=== PATIENT | male | born 1970 | race Caucasian/White ===

== ENCOUNTER 2021-12-30 07:12 | Day surgery (SDC) | payer OTHER ==
[2021-12-30] MEDS ORDERED: FISH OIL 1,4001 EACH PO (07:32)
[2021-12-30] MEDS ORDERED: MEGA MULTI FOR1 EAC1 PO (07:32)
[2021-12-30] MEDS ORDERED: BLACK ELDERBER1 EACH PO (07:32)
--- NOTE | 2021-12-30 11:04 | NUR ---
12/30/21 110[address] [place] [address] PT ARRVIED TO PACU ON 2L VIA NC, PT WAKES EASILY AND TALKING TO RN. VSS. PT DENIES PAIN AND NAUSEA, PT REORIENTED TO PACU. PT ENCOURAGED TO PASS GAS.
--- NOTE | 2021-12-30 16:40 | OR ---
[facility] [address], [place] [address] Signed DATE OF OPERATION: 12/30/2021 SURGEON: Madeleine Casas MD PREOPERATIVE DIAGNOSIS: Screening. POSTOPERATIVE DIAGNOSES: 1. 4 mm polyp proximal transverse colon. 2. 3 mm polyp at 7 cm. 3. Minimal internal hemorrhoid columns. PROCEDURE: Colonoscopy with hot biopsy. INDICATIONS: Gautam is a 51-year-old gentleman, asked to see me for his initial screening colonoscopy. He has no lower GI complaints. There is no family history of colon cancer or polyps. He was hoping to come last year, but the COVID pandemic was in full swing. In the office, I gave him a pamphlet on colonoscopy. He understands the nature of the test. There is risk including, but not limited to gas bloating, crampy abdominal pain, bleeding, perforation requiring surgery, and missed diagnosis. We also discussed the need for IV conscious sedation. He had expressed understanding and wished to proceed. PROCEDURE NOTE: Gautam was taken into our endoscopy suite and placed in the left lateral decubitus position. He was given a total of 10 mg of Versed and 250 mcg of fentanyl. Even then he metabolized the medication very quickly and he woke up multiple times moaning throughout the procedure. He was able to talk to us and look at the screen. Fortunately he is easy to scope and his prep was quite good. Nevertheless, in the future, he really needs monitored anesthesia care with propofol. A digital rectal exam had been performed and this was unremarkable. He had good sphincter tone. The adult colonoscope was introduced and advanced all around into the cecum under direct visualization of the camera. We could easily see the appendiceal orifice and ileocecal valve. The scope was then slowly withdrawn. We took pictures throughout for photodocumentation. He had two tiny polyps removed with a hot biopsy forceps. There was no diverticulosis. Upon retroflexion of the scope, he does have minimal internal hemorrhoid columns. After this, the gas was suctioned out and colonoscope removed. Overall, Gautam tolerated the procedure well as described above. Electronically Signed By: MADELEINE CASAS MD 12/30/21 1640 PATIENT NAME: GAUTAM KAUR OPERATIVE REPORT DATE OF : 70 REPORT #: [id number] PHYSICIAN: MADELEINE CASAS MD PCP: ZORA FUNES PA-C REPORT IS CONFIDENTIAL AND NOT TO BE RELEASED WITHOUT AUTHORIZATION [address] [address] Signed RECOMMENDATIONS: I will see Gautam back in my office in 7 to 14 days to review his results. He should consider monitored anesthesia care with propofol in the future. Madeleine Casas MD ALB/MODL /[id number] cc: Zora Casas MD Copies: MADELEINE CASAS MD ~ Electronically Signed By: MADELEINE CASAS MD 12/30/21 1640 PATIENT NAME: GAUTAM KAUR OPERATIVE REPORT DATE OF : 70 REPORT #: [id number] PHYSICIAN: MADELEINE CASAS MD PCP: ZORA FUNES PA-C REPORT IS CONFIDENTIAL AND NOT TO BE RELEASED WITHOUT AUTHORIZATION
--- NOTE | 2021-12-31 13:42 | PATH ---
[facility] [address], [place] [address] Signed SPECIMEN(S): A PROXIMAL TRANSVERSE COLON POLYP SPECIMEN(S): B COLON POLYP AT 7 CM SPECIMEN SOURCE: A. PROXIMAL TRANSVERSE COLON POLYP B. COLON POLYP AT 7 CM CLINICAL HISTORY: Screening. Post op: Colorectal polyps, internal hemorrhoids. Colonoscopy. FINAL PATHOLOGIC DIAGNOSIS: A. Colon, proximal transverse, polyp, polypectomy: - Tubular adenoma. - Negative for high-grade dysplasia or malignancy. B. Colon, polyp at 7 cm, polypectomy: - Hyperplastic polyp. - Negative for dysplasia or malignancy. NAL:cml:C2NR MICROSCOPIC EXAMINATION: Histologic sections of all submitted blocks are examined by light microscopy. These findings, together with the gross examination, support the pathologic diagnosis. GROSS DESCRIPTION: Two specimens are received in two containers, labeled "IK." A. The specimen, labeled "IK, proximal transverse colon polyp," is received in formalin and consists of one ledezma soft tissue fragment that measures 0.2 cm in greatest dimension. The specimen is entirely submitted in cassette (A1). B. The specimen, labeled "IK, colon polyp at 7 cm," is received in formalin and consists of two ledezma soft tissue fragments that measure 0.1-0.2 cm in greatest dimension. The specimen is entirely submitted in cassette (B1). JS (under the direct supervision of a pathologist) The Gross Description was prepared using a voice recognition system. The report was reviewed for accuracy; however, sound-alike word errors, addition and/or deletions may occur. If there is any question about this report, please contact Client Services. PERFORMING LABORATORY: PATIENT NAME: VONDA KAUR PATHOLOGY DATE OF : 70 REPORT #: [id number] PHYSICIAN: TAMMI DRUMMOND PCP: ZORA FUNES PA-C REPORT IS CONFIDENTIAL AND NOT TO BE RELEASED WITHOUT AUTHORIZATION [facility] [address] [place] [address] Signed The technical component was performed by [place] [place] [address] (Compliance Vice President: Ronel Jacobson MD; CLIA# [id number]). Professional interpretation was performed by [employer] [facility] [address] [address] (CLIA# [id number]). Diagnostician: Zoe Taylor MD Pathologist Electronically Signed 12/31/2021 Copies: ~ PATIENT NAME: VONDA KAUR PATHOLOGY DATE OF : 70 REPORT #: [id number] PHYSICIAN: TAMMI DRUMMOND PCP: ZORA FUNES PA-C REPORT IS CONFIDENTIAL AND NOT TO BE RELEASED WITHOUT AUTHORIZATION
== END 2021-12-30 11:43 | disposition home or self-care (01) ==
LOC: DS 07:12 → OPS 07:12 → DS 08:15 → OPS 08:15
PROVIDERS: ATTEND Colon & Rectal Surgery
PROC: 0DBE8ZX Excision of Large Intestine, Via Natural or Artificial Opening Endoscopic, Diagnostic (ICD-10-PCS; 2021-12-30)
PROC: 0DBL8ZX Excision of Transverse Colon, Via Natural or Artificial Opening Endoscopic, Diagnostic (ICD-10-PCS; principal; 2021-12-30 08:15)
DX: Z12.11 Encounter for screening for malignant neoplasm of colon (principal); D12.3 Benign neoplasm of transverse colon; Z87.891 Personal history of nicotine dependence
CPT/HCPCS: 99153; G0500; J2250; J3010

== ENCOUNTER 2025-03-03 14:51 | Emergency (ER) | payer OTHER ==
[~2025-03-03] VITALS: Ht 190.5 cm; Wt 105.5 kg
[~2025-03-03 14:51] MED LIST: BLACK ELDERBER1 EACH PO; FISH OIL 1,4001 EACH PO; MEGA MULTI FOR1 EAC1 PO
[2025-03-03] MEDS ORDERED: ondansetron HCL 4 MG/2 ML VIAL IV ONE (15:15)
[2025-03-03 15:16] LABS: BASOPHILS 0.5 % (0-2); MONOCYTES 7.6 % (0-12); RDW 13.7 (10.5-15.0)
[2025-03-03 15:19] LABS: EOSINOPHILS 1.1 % (0-6); HEMATOCRIT 47.1 % (35.0-50.0); HEMOGLOBIN 16.9 g/dL (12.0-18.0); LYMPHOCYTES 27.3 % (24-44); MCH 29.8 (27-36); MCHC 35.9 g/dl (30-36); MCV 82.9 fl (81-99); NEUTROPHILS 63.5 % (39-80); PLATELET COUNT 280 K/uL (140-440); RBC 5.68 M/ul (4.3-5.7)
[2025-03-03] MEDS ORDERED: VENLAFAXINE HCL75 M1 PO (15:24)
[2025-03-03] MEDS ORDERED: FLONASE ALLERG9.9 ML NAS (15:25)
[2025-03-03 15:33] LABS: ALBUMIN 4.4 g/dL (3.4-5.0); ALBUMIN/GLOBULIN RATIO 1.29 (1.1-2.4); ANION GAP 13.7 (7-21); BILIRUBIN, TOTAL 0.6 mg/dL (0.2-1.0); BUN/CREATININE RATIO 12.6 (6.0-28.6); CALCIUM 9.3 mg/dL (8.5-10.1); CREATININE, SERUM 1.19 mg/dL (0.70-1.30); POTASSIUM 3.7 mmol/L (3.5-5.1); PROTEIN, TOTAL 7.8 g/dL (6.4-8.2)
[2025-03-03 16:35] LABS: BILIRUBIN, URINE NEGATIVE (negative); BLOOD/HGB, URINE NEGATIVE (Negative); KETONE, URINE NEGATIVE (Negative); LEUK ESTERASE, URINE NEGATIVE (negative); NITRITE, URINE NEGATIVE (negative)
[2025-03-03] MEDS ORDERED: ONDANSETRON ODT4 MG PO (18:37)
[2025-03-03] MEDS ORDERED: HYDROCODON-ACE1 EA10 PO (18:37)
[2025-03-03 18:42] VITALS: BP 140/102
== END 2025-03-03 18:42 | disposition home or self-care (01) ==
LOC: ED 14:51
PROVIDERS: Emergency Medicine
DX: K85.90 Acute pancreatitis without necrosis or infection, unspecified (principal); Z79.51 Long term (current) use of inhaled steroids; Z79.899 Other long term (current) drug therapy
CPT/HCPCS: 36415; 74177; 76705; 80053; 81003; 83690; 84478; 85025; 99284-25; Q9967